=== PATIENT | female | born 2000 | race Caucasian/White ===

== ENCOUNTER 2022-04-19 08:00 | Outpatient (CLI) | payer MEDICAID, OTHER | END 2022-04-19 23:59 | disposition home or self-care (01) | LOC: LAB.R 08:00 | PROVIDERS: ATTEND Nurse Practitioner Family | DX: F90.9 Attention-deficit hyperactivity disorder, unspecified type (principal); Z79.899 Other long term (current) drug therapy | CPT/HCPCS: 80361; 81599 ==

== ENCOUNTER 2022-05-29 17:00 | Outpatient (CLI) | payer MEDICAID | END 2022-05-29 23:59 | disposition home or self-care (01) | LOC: LAB.R 17:00 | PROVIDERS: ATTEND Nurse Practitioner Family | DX: Z79.899 Other long term (current) drug therapy (principal) | CPT/HCPCS: 80324; 81599 ==